=== PATIENT | male | born 1955 | race Caucasian/White ===

== ENCOUNTER → 2016-05-14 | Outpatient (CLI) | payer BC ==
--- NOTE | 2016-05-14 14:34 | DX ---
Left Knee, Five Views May 14, 2016 1400 hours Comparison: April 18, 2009. Clinical Indications: Knee pain. Twisted knee while skiing. Findings: No fracture. Joint spaces have normal thickness, and articular cortex is smooth. No evid ence of joint effusion. There is a normal variant of a fabella. Impression: No evidence of fracture or dislocation.
== END ==
LOC: BMCIMAGING 14:04
PROVIDERS: ATTEND Family Medicine
DX: M25.562 Pain in left knee (principal)